=== PATIENT | female | born 1980 | race Caucasian/White ===

== ENCOUNTER 2020-09-22 00:40 | Emergency (ER) | payer OTHER ==
[~2020-09-22] VITALS: Ht 172.7 cm; Wt 77.1 kg
[2020-09-22] MEDS ORDERED: KETO10TA2 PO (06:57)
[2020-09-22] MEDS ORDERED: BACTRIM DS TAB1 EACH PO (06:57)
== END 2020-09-22 05:38 | disposition home or self-care (01) ==
LOC: ER 00:40
DX: N75.1 Abscess of Bartholin's gland (principal)

== ENCOUNTER 2023-01-07 23:06 | Emergency (ER) | payer OTHER ==
[~2023-01-07] VITALS: Ht 162.6 cm; Wt 72.6 kg
[~2023-01-07 23:06] MED LIST: BACTRIM DS TAB1 EACH PO; KETO10TA2 PO
== END 2023-01-08 02:39 | disposition home or self-care (01) ==
LOC: ER 23:06
DX: S93.492A Sprain of other ligament of left ankle, initial encounter (principal); X50.9XXA Other and unspecified overexertion or strenuous movements or postures, initial encounter; Y93.89 Activity, other specified; Y92.89 Other specified places as the place of occurrence of the external cause